=== PATIENT | male | born 1955 | race African-American/Black ===

== ENCOUNTER 2016-12-25 01:08 | Inpatient (IN) | payer MEDICARE, OTHER ==
[~2016-12-25] VITALS: Ht 167.6 cm; Wt 123.0 kg
[2016-12-25] VITALS (21 sets, daily range): BP systolic 107–195; BP diastolic 57–99; PULSE 64–124; RESP 14–18; TEMP 97.1–98.8; O2SAT 95–100
[2016-12-25 01:58] LABS: AUTOMATED NEUTROPHIL # 4.1 TH/MM3 (1.8-7.7); BASOPHIL % 0.4 % (0.0-2.0); EOSINOPHIL # 0.3 TH/MM3 (0-0.4); EOSINOPHIL % 2.8 % (0.0-4.0); HEMATOCRIT 26.7 % (39.0-51.0); HEMO FLAGS DIFF FINAL; LYMPHOCYTE # 4.4 TH/MM3 (1.0-4.8); MEAN CELL VOLUME 93.8 FL (80.0-100.0); MEAN CORPUSCULAR HEMOGLOBIN 29.6 PG (27.0-34.0); MEAN CORPUSCULAR HGB CONC 31.6 % (32.0-36.0); MONO % 12.1 % (0.0-8.0); NEUT % 40.7 % (16.0-70.0); PLATELET COUNT 259 TH/MM3 (150-450); RED BLOOD COUNT 2.84 MIL/MM3 (4.50-5.90); RED CELL DISTRIBUTION WIDTH 16.5 % (11.6-17.2); WHITE BLOOD COUNT 10.1 TH/MM3 (4.0-11.0)
[2016-12-25 02:01] LABS: ANION GAP 17 MEQ/L (5-15); AST (GOT) 13 U/L (15-37); BICARBONATE 17.8 MEQ/L (21.0-32.0); BLOOD UREA NITROGEN 60 MG/DL (7-18); CHLORIDE 101 MEQ/L (98-107); GLOMERULAR FILTRATION RATE 3 ML/MIN (>89); POTASSIUM 3.9 MEQ/L (3.5-5.1); SODIUM (NA) 136 MEQ/L (136-145)
[2016-12-25 02:04] LABS: ALKALINE PHOSPHATASE 65 U/L (45-117); ALT (GPT) 19 U/L (12-78); TOTAL BILIRUBIN ADULT 0.3 MG/DL (0.2-1.0)
--- NOTE | 2016-12-25 02:04 | RADRPT ---
EXAM DATE/TIME: 12/25/2016 01:33 [facility] COMPARISON: No previous studies available for comparison. INDICATIONS : Shortness of breath, rupture of left upper extremity A-V fistula. MEDICAL HISTORY : Unknown SURGICAL HISTORY : Unknown ENCOUNTER: Initial ACUITY: 1 day PAIN SCORE: 3/10 LOCATION: Bilateral chest FINDINGS: A single view of the chest demonstrates diminished lung volumes without evidence of mass, infiltrate or effusion. Mild cardiomegaly. The cardiomediastinal contours are unremarkable. Osseous structures are intact. CONCLUSION: Mild cardiomegaly. Julito Beaulieu MD on December 25, 2016 at 2:03 Board Certified Radiologist. This report was verified electronically.
[2016-12-25 02:08] LABS: APTT (PATIENT) 24.9 SEC (24.3-30.1); PROTHROMBIN TIME - PATIENT 11.2 SEC (9.8-11.6)
--- NOTE | 2016-12-25 02:40 | PD ---
HPI Chief Complaint: Scourer Problem Time Seen by Provider: 01:13 Travel History International Travel<30 days: No Contact w/Intl Traveler<30days: No Traveled to known affect area: No History of Present Illness HPI This is a 61-year-old male with a history of renal failure, dialysis dependent, who presents here with complaints of weakness and bleeding from his AV fistula site. When patient arrived, he was lethargic and weak. He was pale, diaphoretic with heart rate in the 130s. The patient had blood soaked clothes. A pressure dressing with Arsen bandage was immediately placed to his left AV fistula site. Patient states he woke up in his sleep and a puddle of blood in his bed. The patient denies any chest pain, chest pressure. He reports weakness. He reports dizziness and shortness of breath. PFSH Past Medical History Genitourinary: Yes (CKD) Hypertension: Yes Tetanus Vaccination: < 5 Years Influenza Vaccination: No Past Surgical History Surgical History: No Previous Surgery Social History Alcohol Use: Yes (OCC) Tobacco Use: No Substance Use: No Allergies-Medications (Allergen,Severity, Reaction): Coded Allergies: Penicillin (Verified Allergy, Mild, 12/25/16) Review of Systems Except as stated in HPI: all other systems reviewed are Neg General / Constitutional: No: Fever, Chills HENT: No: Headaches, Lightheadedness, Neck Pain Cardiovascular: Positive: Palpitations, No: Chest Pain or Discomfort, Irregular Rhythm Respiratory: No: Cough, Wheezing Gastrointestinal: No: Nausea, Vomiting, Abdominal Pain Musculoskeletal: Positive: Weakness, No: Myalgias (generalized), Pain Neurologic: Positive: Weakness, Dizziness, No: Headache, Change in Mentation Hematologic/Lymphatic: Positive: Other (bleeding from his left AV fistula.) Physical Exam Narrative GENERAL: Well-developed well-nourished gentleman who was brought in lethargic with a large amount of blood to his close. The patient had arterial bleeding from his left antecubital fossa at his shot. SKIN: Pale cool and diaphoretic. HEAD: Atraumatic. Normocephalic. EYES:No scleral icterus. No injection or drainage. ENT: No nasal bleeding or discharge. Mucous membranes pink and moist. NECK: Trachea midline. No JVD. Supple. Sinus tachycardia with a rate of 120 to 1:30. No murmur appreciated. RESPIRATORY: No accessory muscle use. Clear to auscultation. Breath sounds equal bilaterally. GASTROINTESTINAL: Abdomen soft, obese, non-tender, nondistended. MUSCULOSKELETAL: No obvious deformities. No clubbing. No cyanosis. No edema. Patient had arterial bleeding from his AV fistula site. A pressure dressing was placed with an Arsen bandage to stop the bleeding. NEUROLOGICAL: Awake and weak. No obvious cranial nerve deficits. Motor grossly within normal limits. Normal speech. Data Data Last Documented VS Vital Signs Date Time Temp Pulse Resp B/P Pulse Ox O2 Delivery O2 Flow Rate FiO2 12/25/16 01:24 100 Room Air 12/25/16 01:24 121 18 12/25/16:17 98.5 125/95 Orders Electrocardiogram (12/25/16:13) Complete Blood Count With Diff (12/25/16 01:13) Comprehensive Metabolic Panel (12/25/16:13) Prothrombin Time / Inr (Pt) (12/25/16:13) Act Partial Throm Time (Ptt) (12/25/16:13) Chest, Single Ap (12/25/16:13) Iv Access Insert/Monitor (12/25/16:13) Ecg Monitoring (12/25/16:13) Oximetry (12/25/16:13) Type And Screen (12/25/16:13) Red Blood Cells (Rbc) (12/25/16:13) Blood Product Administration .UPON TRANSFUSION (12/25/16 01:13) Labs Laboratory Tests Test 12/25/16 12/25/16 12/25/16 01:27 01:47 02:00 Sodium Level 136 MEQ/L Potassium Level 3.9 MEQ/L Chloride Level 101 MEQ/L Carbon Dioxide Level 17.8 MEQ/L Anion Gap 17 MEQ/L Blood Urea Nitrogen 60 MG/DL Creatinine 14.40 MG/DL Estimat Glomerular Filtration 3 ML/MIN Rate Random Glucose 146 MG/DL Calcium Level 8.6 MG/DL Total Bilirubin 0.3 MG/DL Aspartate Amino Transf 13 U/L (AST/SGOT) Alanine Aminotransferase 19 U/L (ALT/SGPT) Alkaline Phosphatase 65 U/L Total Protein 7.5 GM/DL Albumin 3.2 GM/DL White Blood Count 10.1 TH/MM3 Red Blood Count 2.84 MIL/MM3 Hemoglobin 8.4 GM/DL Hematocrit 26.7 % Mean Corpuscular Volume 93.8 FL Mean Corpuscular Hemoglobin 29.6 PG Mean Corpuscular Hemoglobin 31.6 % Concent Red Cell Distribution Width 16.5 % Platelet Count 259 TH/MM3 Mean Platelet Volume 7.6 FL Neutrophils (%) (Auto) 40.7 % Lymphocytes (%) (Auto) 44.0 % Monocytes (%) (Auto) 12.1 % Eosinophils (%) (Auto) 2.8 % Basophils (%) (Auto) 0.4 % Neutrophils # (Auto) 4.1 TH/MM3 Lymphocytes # (Auto) 4.4 TH/MM3 Monocytes # (Auto) 1.2 TH/MM3 Eosinophils # (Auto) 0.3 TH/MM3 Basophils # (Auto) 0.0 TH/MM3 CBC Comment DIFF FINAL Differential Comment Prothrombin Time 11.2 SEC Prothromb Time International 1.0 RATIO Ratio Activated Partial 24.9 SEC Thromboplast Time Blood Type A POSITIVE Antibody Screen NEGATIVE Crossmatch Leukocyte-Reduced Red Blood Cells Blood Bank Comment MDM Medical Decision Making Medical Screen Exam Complete: Yes Emergency Medical Condition: Yes Differential Diagnosis Bleeding dyscrasia versus over heparinization versus arterial bleeding from AV fistula. Narrative Course This is a 61-year-old male with history of renal failure, dialysis dependent, who presents here with profuse bleeding from his AV fistula site. We were able to gain control however the patient was extremely tachycardic. and patient reported a large amount of blood on the patient's bed. The patient had blood soaked close. Initial hemoglobin was 8.5 before fluid resuscitation. He' s been typed and crossed for 2 units of blood. He'll be transfused 2 units of blood. I spoke with Dr. Leny Conner, on-call night club manager, who will admit the patient to the intensive care unit. There was a call out to Dr. Cholo Acosta, on-call vascular surgeon who will see the patient in consultation. Bleeding is under control. He'll be continued to be resuscitated. Critical Care Narrative Aggregate critical care time was 45 minutes. Time to perform other separately billable procedures was not included in the critical care time. My time did not include minutes spent treating any other patients simultaneously or on activities that did not directly contribute to the patient's treatment. The services I provided to this patient were to treat and/or prevent clinically significant deterioration that could result in: I provided critical care services requiring my management, as noted below: Chart data review, documentation time, medication orders and management, vital sign assessments/reviewing monitor data, ordering and reviewing lab tests, ordering and interpreting/reviewing x-rays and diagnostic studies, care of the patient and discussion of the patient with the admitting physicians. Diagnosis Primary Impression: severe bleeding from AV fistula site. Additional Impressions: Symptomatic anemia persistent tachycardia Kota Serrano MD Dec 25, 2016 02:40
--- NOTE | 2016-12-25 03:25 | HHI.HP ---
[facility] Service Critical Care Medicine Primary Care Physician Dayron Shetty, DO Admission Diagnosis servere av fistula hemmorhage, symptomatic anemia, perstistant tachy Diagnosis: Travel History International Travel<30 Days: No Contact w/Intl Traveler <30 Da: No Traveled to Known Affected Are: No History of Present Illness Patient came in as Abran Acosta middle 164. His name is Abran Huitron 61-year-old male with past medical history of hypertension and end-stage renal disease on hemodialysis since 2007. (Sunday/Sunday/Sunday schedule under the direction of Dr. Kota Ibarra). Tonight he was sleeping and woke up in a puddle of blood. He had active arterial bleeding from his left AV fistula. He was tachycardic in the 140s and presyncopal. There was large volume blood loss in the ED. Dr. Serrano applied a pressure dressing in the ED and was able to achieve satisfactory hemostasis. Vascular surgery has been consulted and Dr. Ko will see him later this morning. Hemoglobin is 8.4. Two units of packed red cells have been ordered and he is currently receiving the first unit. Heart rate is down to 99-101 and BP is 117/60. He states his baseline BP is 120s. L AV brachiocephalic fistula was placed by Dr. Slade 10/02. Dr. Serrano states there is an eschar over fistula that was partially unroofed. Patient states eschar has been present for several months and that he has not sought medical attention for it. Denies prior issues with bleeding, drainage, fever. He denies chest pain or shortness of breath. Review of Systems Constitutional: COMPLAINS OF: Dizziness Past Family Social History Allergies: Coded Allergies: Penicillin (Verified Allergy, Mild, 12/25/16) Past Medical History Hypertension ESRD on HD since 2007 Past Surgical History Peritoneal dialysis catheter 11/07/07 (Dr. Slade) Left brachiocephalic AV fistula 06/12/08 (Dr. Slade) Family History Father had cancer, unclear type Social History He is a nonsmoker. Drinks alcohol only on special occasions. denies use of illicit drugs. Is a Physical Exam Vital Signs Vital Signs Date Time Temp Pulse Resp B/P Pulse Ox O2 Delivery O2 Flow Rate FiO2 12/25/16 03:18 98.7 102 18 107/58 100 Room Air 12/25/16 01:24 100 Room Air 12/25/16 01:24 121 18 100 Room Air 12/25/16 01:17 98.5 124 18 125/95 100 Physical Exam GENERAL: Well-nourished, well-developed obese very pleasant male who is laying in ED stretcher SKIN: Warm and dry, well perfused. HEAD: Atraumatic. Normocephalic. EYES: Pupils equal and round, 3 mm reactive. . ENT: No nasal bleeding or discharge. Mucous membranes pink and moist. NECK: Trachea midline. No JVD. CARDIOVASCULAR: Regular rate and rhythm. No murmurs rubs or gallops. RESPIRATORY: No accessory muscle use. Clear to auscultation. Breath sounds equal bilaterally. on 2 L NC. GASTROINTESTINAL: Abdomen soft, non-tender, nondistended. MUSCULOSKELETAL: Extremities without clubbing, cyanosis, or edema. Dressing in place over left upper extremity without evidence of active bleeding. Thrill LUE is palpable through the bandage. Radial pulse is palpable. NEUROLOGICAL: Awake and alert. . Motor grossly within normal limits. Normal speech, oriented. Laboratory Laboratory Tests Test 12/25/16 12/25/16 12/25/16 01:27 01:47 02:00 Sodium Level 136 Potassium Level 3.9 Chloride Level 101 Carbon Dioxide Level 17.8 Anion Gap 17 Blood Urea Nitrogen 60 Creatinine 14.40 Estimat Glomerular Filtration 3 Rate Random Glucose 146 Calcium Level 8.6 Total Bilirubin 0.3 Aspartate Amino Transf 13 (AST/SGOT) Alanine Aminotransferase 19 (ALT/SGPT) Alkaline Phosphatase 65 Total Protein 7.5 Albumin 3.2 White Blood Count 10.1 Red Blood Count 2.84 Hemoglobin 8.4 Hematocrit 26.7 Mean Corpuscular Volume 93.8 Mean Corpuscular Hemoglobin 29.6 Mean Corpuscular Hemoglobin 31.6 Concent Red Cell Distribution Width 16.5 Platelet Count 259 Mean Platelet Volume 7.6 Neutrophils (%) (Auto) 40.7 Lymphocytes (%) (Auto) 44.0 Monocytes (%) (Auto) 12.1 Eosinophils (%) (Auto) 2.8 Basophils (%) (Auto) 0.4 Neutrophils # (Auto) 4.1 Lymphocytes # (Auto) 4.4 Monocytes # (Auto) 1.2 Eosinophils # (Auto) 0.3 Basophils # (Auto) 0.0 CBC Comment DIFF FINAL Differential Comment Prothrombin Time 11.2 Prothromb Time International 1.0 Ratio Activated Partial 24.9 Thromboplast Time Blood Type A POSITIVE Antibody Screen NEGATIVE Crossmatch Leukocyte-Reduced Red Blood Cells Blood Bank Comment Result Diagram: 12/25/16 0147 12/25/16 0127 Assessment and Plan Assessment and Plan NEURO: Lortab if needed for pain RESP: Nasal cannula wean as tolerated CV: History of hypertension Hold losartan and hydralazine home meds for now. GI: Nothing by mouth until evaluated by vascular surgery FEN/RENAL: ESRD Consult nephrology for HD. Will need vascath for access . Dr. Kota Ibarra is his manager qa. ID: Monitor for signs and symptoms of infection HEME: Acute blood loss anemia Transfuse 2 units PRBC. Repeat Hgb post transfusion VASC: Bleeding from left AV fistula Pressure dressing has been applied by Dr. Serrano. Dr. Richardson with vascular surgery to see. ENDO: Mild stress hyperglycemia. Monitor and initiate low-dose sliding scale if indicated PROPH: SCDs for DVT prophylaxis. Hold on pharmacologic DVT prophylaxis currently due to life threatening hemorrhage. Protonix 40 mg IV daily for stress ulcer prophylaxis. ACCESS: Peripheral IV providing adequate access at this time. Left upper extremity AV fistula 06/21 Patient updated at bedside. Discussed with Dr. Serrano. Level 2 H and Leny Garnica MD Dec 25, 2016 03:25
[2016-12-25] MEDS ORDERED: HYDR-3801 PO (04:11)
[2016-12-25] MEDS ORDERED: SLEEP (04:11)
[2016-12-25] MEDS ORDERED: LOSA25TA PO (04:11)
[2016-12-25] MEDS ORDERED: SODIUM CHLORIDE 0.9% FLUSH 10 ML FLUSH IV FLUSH PRN ×2 (04:15→18:30)
[2016-12-25] MEDS ORDERED: RESP: ALBUTEROL 2.5 MG/3 ML NEB (PRN) INH (04:15)
[2016-12-25] MEDS ORDERED: ACETAMINOPHEN/HYDROcodone 325 MG/5 MG TAB PO PRN (04:15)
[2016-12-25] MEDS ORDERED: BISACODYL 10 MG SUPP RECTAL PRN (04:15)
[2016-12-25] MEDS ORDERED: MISCELLANEOUS NURSING INFORMATION XX SCH (04:15)
[2016-12-25] MEDS ORDERED: MORPHINE SULFATE 4 MG/ML INJ IV PUSH PRN ×2 (04:15→11:15)
[2016-12-25] MEDS ORDERED: CHLORHEXIDINE GLUCONATE 2 % 1 PACK (2 CLOTHS) TOP PRN (04:15)
[2016-12-25] MEDS ORDERED: ONDANSETRON HCL 4 MG/2 ML VIAL IV PRN ×2 (04:15→18:30)
[2016-12-25] MEDS ORDERED: SENNOSIDES 8.6 MG TAB PO PRN (04:15)
[2016-12-25] MEDS ORDERED: MAGNESIUM HYDROXIDE SUSP 30 ML CUP PO PRN ×2 (04:15→11:15)
[2016-12-25] MEDS ORDERED: LACTULOSE SYRUP 20 GM/30 ML CUP PO PRN (04:15)
[2016-12-25] MEDS ORDERED: VANCOMYCIN HCL 1000 MG VIAL ONE (08:05)
[2016-12-25] MEDS ORDERED: HEPARIN SODIUM - IV 10,000 UNITS/10 ML VIAL ONE (08:05)
[2016-12-25] MEDS ORDERED: HEPARIN SODIUM - SQ 10,000 UNITS/ML VIAL ONE (08:05)
[2016-12-25] MEDS ORDERED: PROTAMINE SULFATE 50 MG/5 ML VIAL ONE (08:05)
[2016-12-25] MEDS ORDERED: THROMBIN (TOPICAL) 20,000 UNIT SPRAY KIT ONE (08:06)
[2016-12-25] MEDS ORDERED: BUPIVACAINE/EPINEPHRINE 0.5% 50 ML VIAL ONE (08:06)
[2016-12-25] MEDS ORDERED: BUPIVACAINE HCL PF 0.5% 30 ML VIAL ONE (08:06)
--- NOTE | 2016-12-25 08:38 | PD.VS.CON ---
History of Present Illness Chief Complaint: Left arm bleeding from previously created AVF. Consult Requested by: Dr. Serrano History of Present Illness Patient with hx of left upper extremity AVF [place] [address] Slade. Ulceration for a few months per the patient of the left upper extremity AVF Past/Family/Social History Past Medical History Allergies: Coded Allergies: Penicillin (Verified Allergy, Mild, 12/25/16) Past Medical History Hypertension ESRD on HD since 2007 Past Surgical History Peritoneal dialysis catheter 11/07/07 (Dr. Slade) Left brachiocephalic AV fistula 06/12/08 (Dr. Slade) Family History Father had cancer, unclear type Social History He is a nonsmoker. Drinks alcohol only on special occasions. denies use of illicit drugs. Is a Home Medications Reported Medications [sleep] No Conflict Check 12/25/16 Hydralazine 100 Mg [id number] Mg PO BID Ref 0 Take with meals 12/25/16 Losartan 25 Mg Tab12.5 Mg PO DAILY #15 TAB Ref 0 12/25/16 Coded Allergies: Penicillin (Verified Allergy, Mild, 12/25/16) Physical Exam Vitals/I&O Date Time Temp Pulse Resp B/P Pulse Ox O2 Delivery O2 Flow Rate FiO2 12/25/16 06:26 98.0 64 16 130/75 97 12/25/16 06:18 98.2 83 18 122/67 100 Room Air 12/25/16 05:59 87 18 119/65 100 Room Air 12/25/16 05:46 98.1 84 18 148/57 100 Nasal Cannula 2 12/25/16 05:29 98.8 85 18 120/59 100 Room Air 12/25/16 03:50 69 18 131/86 100 Room Air 12/25/16 03:28 100 18 117/60 100 Room Air 12/25/16 03:18 98.7 102 18 107/58 100 Room Air 12/25/16 01:24 100 Room Air 12/25/16 01:24 121 18 100 Room Air 12/25/16 01:17 98.5 124 18 125/95 100 12/25/16 12/25/16 12/25/16 07:00 15:00 23:00 Intake Total 250 ml Balance 250 ml Neuro: CN 2-12 intact Neck: supple Heart: regular Lungs: CTA B Abdomen: soft, protuberant. Vascular: left arm with dressing in place. left radial pulse palpable. Laboratory Tests Test 12/25/16 12/25/16 12/25/16 01:27 01:47 02:00 Sodium Level 136 Potassium Level 3.9 Chloride Level 101 Carbon Dioxide Level 17.8 Anion Gap 17 Blood Urea Nitrogen 60 Creatinine 14.40 Estimat Glomerular Filtration 3 Rate Random Glucose 146 Calcium Level 8.6 Total Bilirubin 0.3 Aspartate Amino Transf 13 (AST/SGOT) Alanine Aminotransferase 19 (ALT/SGPT) Alkaline Phosphatase 65 Total Protein 7.5 Albumin 3.2 White Blood Count 10.1 Red Blood Count 2.84 Hemoglobin 8.4 Hematocrit 26.7 Mean Corpuscular Volume 93.8 Mean Corpuscular Hemoglobin 29.6 Mean Corpuscular Hemoglobin 31.6 Concent Red Cell Distribution Width 16.5 Platelet Count 259 Mean Platelet Volume 7.6 Neutrophils (%) (Auto) 40.7 Lymphocytes (%) (Auto) 44.0 Monocytes (%) (Auto) 12.1 Eosinophils (%) (Auto) 2.8 Basophils (%) (Auto) 0.4 Neutrophils # (Auto) 4.1 Lymphocytes # (Auto) 4.4 Monocytes # (Auto) 1.2 Eosinophils # (Auto) 0.3 Basophils # (Auto) 0.0 CBC Comment DIFF FINAL Differential Comment Prothrombin Time 11.2 Prothromb Time International 1.0 Ratio Activated Partial 24.9 Thromboplast Time Blood Type A POSITIVE Antibody Screen NEGATIVE Crossmatch Leukocyte-Reduced Red Blood Cells Blood Bank Comment Last 48 hours Impressions Chest X-Ray 12/25/16 0113 Signed Impressions: Service Date/Time: Sunday, December 25, 2016 01:33 - CONCLUSION: Mild cardiomegaly. Julito Beaulieu MD Assessment and Plan Assessment: (1) Symptomatic anemia Status: Acute Plan 61 year old male with hx of left upper extremity access with bleeding. Patient being resuscitated. (two units of PRBCs). Plan for operative repair of left upper extremity fistula. Reached out to Dr. Slade and spoke with Dr. Ibarra. Will need [facility] in the interim for HD. Cholo Ko DO, Cholo Webb DO Dec 25, 2016 08:37
[2016-12-25] MEDS: SODIUM CHLORIDE 0.9% FLUSH 10 ML FLUSH IV FLUSH SCH ×2 (09:00→21:42)
[2016-12-25] MEDS ORDERED: PANTOPRAZOLE SODIUM 40 MG VIAL IV SCH (09:00)
[2016-12-25] MEDS: DOCUSATE SODIUM 50 MG/SENNA 8.6 MG TAB PO SCH ×2 (09:00→21:43)
--- NOTE | 2016-12-25 11:12 | HHI.PR ---
Immediate Post Op Note Procedure Date: Dec 25, 2016 Pre Op Diagnosis: (1) Pseudoaneurysm of AV hemodialysis fistula (2) Symptomatic anemia Post Op Diagnosis: (1) Symptomatic anemia (2) Pseudoaneurysm of AV hemodialysis fistula Surgeon: Cholo Ko Weekend Receptionist(s): Abran Meade Procedure: left upper extremity pseudonaeurysm repair with 5mm bovine carotid arteriograft. Findings: bilobed and ulcerated left upper extremity pseudoaneurysm. Additional Information: NA Complications: None Specimen(s) removed: Left upper extremity pseudoaneurysm. Estimated blood loss: 500cc Anesthesia: General, Local Drains: None Fluids: 750cc crystalloid IVF Tourniquet time (min at mmHg) NA Patient to: PACU Patient Condition: Good Implant/Devices: Other Date/Time of Procedure: Other Cholo oK DO Dec 25, 2016 11:12
[2016-12-25] MEDS ORDERED: ONDANSETRON HCL 4 MG/2 ML VIAL IV PUSH PRN (11:15)
[2016-12-25] MEDS ORDERED: oxyCODONE/ACETAMINOPHEN 10 MG/325 MG TAB PO PRN (11:15)
[2016-12-25] MEDS ORDERED: oxyCODONE/ACETAMINOPHEN 5 MG/325 MG TAB PO PRN (11:15)
[2016-12-25] MEDS ORDERED: GLUCAGON 1 MG/ML VIAL OTHER PRN (11:15)
[2016-12-25] MEDS ORDERED: DEXTROSE 50% IN WATER 50 ML VIAL(D50) IV PUSH PRN (11:15)
[2016-12-25] MEDS ORDERED: Post-op Orders (for Pharmacy) MISC OTHER ONE (11:29)
[2016-12-25] MEDS ORDERED: ONDANSETRON HCL 4 MG/2 ML VIAL IV PUSH ONE (12:00)
[2016-12-25] MEDS: INSULIN NovoLIN REGULAR SUPPLEMENTAL SCALE SQ SCH (12:00)
[2016-12-25] MEDS ORDERED: NEOSTIGMINE 3 MG/3 ML SYR IV ONE (12:00)
[2016-12-25] MEDS ORDERED: PHENYLEPH/NS 1000 MCG/10 ML SYR IV ONE (12:00)
[2016-12-25] MEDS ORDERED: PROPOFOL 200 MG/20 ML AMP IV ONE (12:00)
[2016-12-25] MEDS ORDERED: hydrALAZINE HCL 20 MG/ML VIAL IV PUSH ONE (12:15)
[2016-12-25] MEDS ORDERED: hydrALAZINE HCL 20 MG/ML VIAL IV PUSH PRN (12:15)
[2016-12-25] MEDS ORDERED: LOSA50TA PO (12:55)
[2016-12-25] MEDS ORDERED: ISOS60TA PO (12:56)
[2016-12-25] MEDS ORDERED: ASPI81TA11 PO (12:56)
[2016-12-25] MEDS ORDERED: HYDR-3799 PO (12:58)
[2016-12-25] MEDS ORDERED: SENS60TA PO (12:59)
[2016-12-25] MEDS ORDERED: ATEN50TA PO (12:59)
[2016-12-25] MEDS ORDERED: fentaNYL CITRATE 250 MCG/5 ML AMP ONE (13:49)
[2016-12-25] MEDS ORDERED: MIDAZOLAM HCL 5 MG/5 ML VIAL ONE (13:49)
[2016-12-25] MEDS ORDERED: LIDOCAINE 1%/EPINEPHrine 1:100,000 SOLN 20 ML VIAL ONE (14:13)
--- NOTE | 2016-12-25 14:15 | EKG ---
Date Performed: 12/25/2016 Time Performed: 01:28:09 PTAGE: 89 years EKG: SINUS TACHYCARDIA NONSPECIFIC T-WAVE ABNORMALITY ABNORMAL RHYTHM ECG NO PREVIOUS TRACING DOCTOR: Josh Stevens Interpretating Date/Time 12/25/2016 14:13:31
--- NOTE | 2016-12-25 14:51 | PD.RAD ---
Post Procedure Progress Note Pre Procedure Diagnosis: (1) Pseudoaneurysm of AV hemodialysis fistula Post Procedure Diagnosis: (1) Pseudoaneurysm of AV hemodialysis fistula Procedure Date: Dec 25, 2016 Supervising Radiologist: Pierre Ford Proceduralist/Assist: Owen Andujar RT(R) Anesthesia: Conscious Sedation Plan of Activity Patient to Unit: Nursing Unit Patient Condition: Good Additional Comments: Right IJ is occluded. Placed cath at IJ origin. See PACS Report for procedural detail/treatment Pierre Ford MD Dec 25, 2016 14:51
[2016-12-25] MEDS ORDERED: HEPARIN SODIUM - IV 2,000 UNITS/2 ML VIAL IV FLUSH PRN (15:00)
[2016-12-25] MEDS ORDERED: SODIUM CHLORIDE 0.9% FLUSH 10 ML FLUSH IVF PRN (15:00)
--- NOTE | 2016-12-25 15:58 | RADRPT ---
EXAM DATE/TIME: 12/25/2016 14:13 [facility] COMPARISON: No previous studies available for comparison. INDICATIONS : Patient presents with end stage renal disease in need of dialysis catheter placement. MEDICAL HISTORY : Hypertension ESRD on HD since 2007 SURGICAL HISTORY : Peritoneal dialysis catheter 11/07/07 (Dr. Slade) Left brachiocephalic AV fistula 06/12/08 (Dr. Slade) ENCOUNTER: Initial ACUITY: 1 day PAIN SCORE: 0/10 LOCATION: N/A FLUORO TIME: 0.6 minutes IMAGE SERIES: 0 SEDATION TIME: 30 minutes ACCESS: Right internal jugular vein SEDATION: 1.) 2 mg midazolam (Versed) IV 2.) 150 mcg fentanyl (Sublimaze) IV Prophylactic antibiotics were administered with appropriate pre-procedure timing. Vancomycin within 2 hours of procedure, Ancef (or alternative) within 1 hour of procedure. DEVICE: 1. 15 Slovenian dual lumen 19 cm Sandoval II Plus catheter PROCEDURE : 1. Ultrasound-guided venipuncture. 2. PermaCath placement. 3. Conscious sedation with continuous EKG and oximetry monitoring. The risks, benefits and alternatives to the procedure were explained and verbal and written consent w as obtained. The site was prepped in sterile fashion. Full sterile technique was used, including ca p, mask, sterile gloves and gown and a large sterile sheet. Hand hygiene and 2% chlorhexidine and/or betadine/alcohol prep was utilized per protocol for cutaneous antisepsis. The skin and subcutaneous tissues were infiltrated with local anesthetic solution.With ultrasound and fluoroscopic guidance a dermatotomy was created over the prescribed vein. A micropuncture set was used to access the targete d vein and serial dilatation was performed to accept the prescribed length catheter. A subcutaneous tunnel was created in a retrograde fashion the catheter was pulled through the tunnel. The catheter was flushed and assembled and locked with heparin. The catheter was sutured in place. Conscious sedation was performed with the prescribed dosages and duration as above in the presence of an independent trained radiology nurse to assist in the monitoring of the patient. EKG and oximetry remained stable throughout the procedure. The patient tolerated the procedure well and there were n o complications. The patient was sent to post anesthesia recovery in stable condition. CONCLUSION: Uncomplicated PermaCath placement as above. Pierre Ford MD on December 25, 2016 at 15:55 Board Certified Radiologist. This report was verified electronically.
--- NOTE | 2016-12-25 16:45 | PD.CONS ---
HPI Service Nephrology Consult Requested By Dr. Conner Reason for Consult ESRD on HD. Known to services Primary Care Physician Dayron Shetty DO History of Present Illness The patient is a 61 yo AA male who is known to our services for ESRD on HD. He was brought in by his significant other early this AM for profuse bleeding from his L AVF. Says he awoke in a pool of blood. Has had ulceration on L AVF that was recently evaluated in outpatient vascular surgery clinic, that apparently broke open. Had uneventful HD as outpatient this past Sunday. Specifics of the outpatient vascular report not available to me at this time. Once in ED, a pressure dressing was applied by ED physician and vascular surgery was consulted for repair. Admitting Hgb was 8.4 and he received 2U PRBCs. Vitals overall stable, except tachycardia with HR in 140s. Review of surgical report showed left upper extremity pseudoaneurysm repair with 5mm bovine carotid arteriograft for bilobed and ulcerated left upper extremity pseudoaneurysm. Now has [facility] PermaCath for HD. Pt evaluated today during HD. Drowsy, but says he is doing OK. Review of Systems ROS Limitations: Clinical Condition Constitutional: COMPLAINS OF: Fatigue Past Family Social History Allergies: Coded Allergies: Penicillin (Verified Allergy, Mild, 12/25/16) Past Medical History ESRD on HD HTN Anemia 2ndary hyperparathyroidism Past Surgical History PD catheter placement with subsequent removal L AVF formation Reported Medications Reported Meds & Active Scripts Active Reported Atenolol 50 Mg Tab 50 Mg PO DAILY Sensipar (Cinacalcet) 60 Mg Tab 60 Mg PO DAILY Hydralazine HCl 25 Mg Tablet 25 Mg PO DAILY Aspirin EC (Aspirin) 81 Mg Tabdr 81 Mg PO DAILY Isosorbide Mononitrate ER (Isosorbide Mononitrate) 60 Mg Tab 60 Mg PO DAILY Losartan (Losartan Potassium) 50 Mg Tab 50 Mg PO DAILY [sleep] Active Ordered Medications Current Medications Medications (Trade) Dose Ordered Sig/Tahir Route Start Time Stop Time Status Last Admin (NS Flush) 2 ml UNSCH PRN IV FLUSH 12/25/16 04:15 (NS Flush) 2 ml BID IV FLUSH 12/25/16 09:00 Miscellaneous Information 1 Q361D XX 12/25/16 04:15 (Chlorhexidine 2% Cloth) 3 pack Taper DAILY@04 TOP 12/26/16 04:00 12/22/17 03:59 (Chlorhexidine 2% Cloth) 3 pack UNSCH PRN TOP 12/25/16 04:15 (Sari-Colace) 1 tab BID PO 12/25/16 09:00 (Milk Of Magnesia Liq) 30 ml Q12H PRN PO 12/25/16 04:15 (Senokot) 17.2 mg Q12H PRN PO 12/25/16 04:15 (Dulcolax Supp) 10 mg DAILY PRN RECTAL 12/25/16 04:15 (Lactulose Liq) 30 ml DAILY PRN PO 12/25/16 04:15 (Zofran Inj) 4 mg Q6H PRN IV PUSH 12/25/16 11:15 (Protonix) 40 mg HS PO 12/25/16 21:00 (Milk Of Magnesia Liq) 30 ml DAILY PRN PO 12/25/16 11:15 (Surfak) 240 mg HS PO 12/25/16 21:00 (Percocet 5-325 Mg) 1 tab Q4H PRN PO 12/25/16 11:15 (Percocet 10-325 Mg) 1 tab Q4H PRN PO 12/25/16 11:15 Morphine Sulfate 4 mg 4 mg Q4H PRN IV PUSH 12/25/16 11:15 (Vancomycin Inj/ NS 250 ml Inj) 250 ml @ 250 mls/hr Q12H IV 12/25/16 21:00 12/26/16 09:59 (NovoLIN R SUPPLEMENTAL SCALE) 1 Q6HR SQ 12/25/16 12:00 (D50w (Vial) Inj) 50 ml UNSCH PRN IV PUSH 12/25/16 11:15 (Glucagon Inj) 1 mg UNSCH PRN OTHER 12/25/16 11:15 (Apresoline Inj) 10 mg Q30M PRN IV PUSH 12/25/16 12:15 (NS Flush) UNSCH PRN IVF 12/25/16 15:00 (Heparin Inj) UNSCH PRN IV FLUSH 12/25/16 15:00 Family History NC Social History . Has significant other Denies tobacco Social EtOH No illicits Physical Exam Vital Signs Vital Signs Date Time Temp Pulse Resp B/P Pulse Ox O2 Delivery O2 Flow Rate FiO2 12/25/16 12:00 97.1 93 16 195/82 97 12/25/16 11:57 95 Nasal Cannula 4.00 12/25/16 11:45 97 Nasal Cannula 6.00 12/25/16 11:30 97.7 108 14 173/99 100 12/25/16 11:30 101 12/25/16 07:00 88 12/25/16 07:00 97.9 88 16 123/69 97 12/25/16 06:26 98.0 64 16 130/75 97 12/25/16 06:18 98.2 83 18 122/67 100 Room Air 12/25/16 05:59 87 18 119/65 100 Room Air 12/25/16 05:46 98.1 84 18 148/57 100 Nasal Cannula 2 12/25/16 05:29 98.8 85 18 120/59 100 Room Air 12/25/16 03:50 69 18 131/86 100 Room Air 12/25/16 03:28 100 18 117/60 100 Room Air 12/25/16 03:18 98.7 102 18 107/58 100 Room Air 12/25/16 01:24 100 Room Air 12/25/16 01:24 121 18 100 Room Air 12/25/16 01:17 98.5 124 18 125/95 100 Physical Exam GENERAL: Drowsy, but arousable. SKIN: Warm and dry. HEAD: Atraumatic. Normocephalic. EYES: Pupils equal and round. No scleral icterus. No injection or drainage. ENT: No nasal bleeding or discharge. Mucous membranes pink and moist. NECK: Trachea midline. No JVD. CARDIOVASCULAR: Slightly tachy. L arm wrapped in JANICE bandage. RIJ PC RESPIRATORY: No accessory muscle use. Clear to auscultation. Breath sounds equal bilaterally. GASTROINTESTINAL: Abdomen soft, non-tender, nondistended. Hepatic and splenic margins not palpable. MUSCULOSKELETAL: Extremities without clubbing, cyanosis, or edema. No obvious deformities. NEUROLOGICAL: Drowsy but alert. Normal speech. PSYCHIATRIC: Appropriate mood and affect; insight and judgment normal. Laboratory Laboratory Tests Test 12/25/16 12/25/16 12/25/16 12/25/16 01:27 01:47 02:00 07:40 Sodium Level 136 Potassium Level 3.9 Chloride Level 101 Carbon Dioxide Level 17.8 Anion Gap 17 Blood Urea Nitrogen 60 Creatinine 14.40 Estimat Glomerular Filtration 3 Rate Random Glucose 146 Calcium Level 8.6 Total Bilirubin 0.3 Aspartate Amino Transf 13 (AST/SGOT) Alanine Aminotransferase 19 (ALT/SGPT) Alkaline Phosphatase 65 Total Protein 7.5 Albumin 3.2 White Blood Count 10.1 Red Blood Count 2.84 Hemoglobin 8.4 Hematocrit 26.7 Mean Corpuscular Volume 93.8 Mean Corpuscular Hemoglobin 29.6 Mean Corpuscular Hemoglobin 31.6 Concent Red Cell Distribution Width 16.5 Platelet Count 259 Mean Platelet Volume 7.6 Neutrophils (%) (Auto) 40.7 Lymphocytes (%) (Auto) 44.0 Monocytes (%) (Auto) 12.1 Eosinophils (%) (Auto) 2.8 Basophils (%) (Auto) 0.4 Neutrophils # (Auto) 4.1 Lymphocytes # (Auto) 4.4 Monocytes # (Auto) 1.2 Eosinophils # (Auto) 0.3 Basophils # (Auto) 0.0 CBC Comment DIFF FINAL Differential Comment Prothrombin Time 11.2 Prothromb Time International 1.0 Ratio Activated Partial 24.9 Thromboplast Time Blood Type A POSITIVE Antibody Screen NEGATIVE Crossmatch Leukocyte-Reduced Red Blood Cells Blood Bank Comment Nasal Screen MRSA (PCR) MRSA NOT DETECTED Test 12/25/16 12/25/16 08:27 10:37 Blood Type A POSITIVE Crossmatch Leukocyte-Reduced Leukocyte-Reduced Red Blood Red Blood Cells Cells Blood Bank Comment Result Diagram: 12/25/16 0147 12/25/167 Imaging Last Impressions Chest X-Ray 12/25/16 0113 Signed Impressions: Service Date/Time: Sunday, December 25, 2016 01:33 - CONCLUSION: Mild cardiomegaly. Julito Beaulieu MD Assessment and Plan Problem List: (1) ESRD on dialysis Plan: Pt seen during HD today. Using RIJ Permcath that appears to be functioning well. Mildly acidotic that will correct with HD. Significant fluid retention. UF of 4L as tolerated. Check iPTH, Vit D, and Phos levels. Medications should be adjusted for the patient's ESRD. Avoid gadolinium. (2) Pseudoaneurysm of AV hemodialysis fistula Plan: Repaired 12/25/[address] Ko. (3) Symptomatic anemia Plan: Check CBC with Fe panel for tomorrow. s/p 2U PRBCs (4) Secondary hyperparathyroidism Plan: Check iPTH & Vit D (5) Hyperphosphatemia Plan: Check Phos level (6) Hypertension Plan: BP a little elevated tonight likely related to significant fluid retention. Will reassess after HD and adjust medications if needed. Nasima Potter Dec 25, 2016 16:45
[2016-12-25] MEDS ORDERED: cloNIDine HCL 0.1 MG TAB PO PRN (18:30)
[2016-12-25] MEDS ORDERED: GELATIN 12 MM/7 MM FOAM TOPICAL PRN (18:30)
[2016-12-25] MEDS ORDERED: HEPARIN SODIUM - IV 10,000 UNITS/10 ML VIAL OTHER PRN (18:30)
[2016-12-25] MEDS ORDERED: NS 250 ML IV PRN (18:30)
[2016-12-25] MEDS ORDERED: diphenhydrAMINE HCL 25 MG CAP PO PRN (18:30)
[2016-12-25] MEDS ORDERED: MANNITOL 12.5 GM/50 ML VIAL IV PRN (18:30)
[2016-12-25] MEDS ORDERED: HEPARIN SODIUM - IV 10,000 UNITS/10 ML VIAL IV FLUSH PRN (18:30)
[2016-12-25] MEDS ORDERED: ALBUMIN HUMAN 25% 25 GM/100 ML BAGP IV PRN (18:30)
[2016-12-25] MEDS ORDERED: ACETAMINOPHEN 325 MG TAB PO PRN (18:30)
[2016-12-25] MEDS ORDERED: GENTAMICIN SULFATE (DIALYSIS USE ONLY) 20 MG/2 ML VIAL OTHER PRN (18:30)
[2016-12-25] MEDS ORDERED: SODIUM CHLOR 0.9% 1000 ML IV PRN ×2 (18:30)
[2016-12-25] MEDS ORDERED: NITROGLYCERIN 0.4 MG SL 25 TABS/BTL SL PRN (18:30)
--- NOTE | 2016-12-25 18:33 | PD.VS.PN ---
Subjective POD #: 0 Procedure(s): Repair of left upper extremity pseudoaneurysm of AVF. Subjective/Hospital Course without complaints. Objective Vitals/I&O left upper arm with thrill and dressing intact. Date Time Temp Pulse Resp B/P Pulse Ox O2 Delivery O2 Flow Rate FiO2 12/25/16 12:00 97.1 93 16 195/82 97 12/25/16 11:57 95 Nasal Cannula 4.00 12/25/16 11:45 97 Nasal Cannula 6.00 12/25/16 11:30 97.7 108 14 173/99 100 12/25/16 11:30 101 12/25/16 07:00 88 12/25/16 07:00 97.9 88 16 123/69 97 12/25/16 06:26 98.0 64 16 130/75 97 12/25/16 06:18 98.2 83 18 122/67 100 Room Air 12/25/16 05:59 87 18 119/65 100 Room Air 12/25/16 05:46 98.1 84 18 148/57 100 Nasal Cannula 2 12/25/16 05:29 98.8 85 18 120/59 100 Room Air 12/25/16 03:50 69 18 131/86 100 Room Air 12/25/16 03:28 100 18 117/60 100 Room Air 12/25/16 03:18 98.7 102 18 107/58 100 Room Air 12/25/16 01:24 100 Room Air 12/25/16 01:24 121 18 100 Room Air 12/25/16 01:17 98.5 124 18 125/95 100 12/25/16 12/25/16 12/25/16 07:00 15:00 23:00 Intake Total 250 ml Balance 250 ml Laboratory Laboratory Tests Test 12/25/16 12/25/16 12/25/16 12/25/16 01:27 01:47 02:00 07:40 Sodium Level 136 Potassium Level 3.9 Chloride Level 101 Carbon Dioxide Level 17.8 Anion Gap 17 Blood Urea Nitrogen 60 Creatinine 14.40 Estimat Glomerular Filtration 3 Rate Random Glucose 146 Calcium Level 8.6 Total Bilirubin 0.3 Aspartate Amino Transf 13 (AST/SGOT) Alanine Aminotransferase 19 (ALT/SGPT) Alkaline Phosphatase 65 Total Protein 7.5 Albumin 3.2 White Blood Count 10.1 Red Blood Count 2.84 Hemoglobin 8.4 Hematocrit 26.7 Mean Corpuscular Volume 93.8 Mean Corpuscular Hemoglobin 29.6 Mean Corpuscular Hemoglobin 31.6 Concent Red Cell Distribution Width 16.5 Platelet Count 259 Mean Platelet Volume 7.6 Neutrophils (%) (Auto) 40.7 Lymphocytes (%) (Auto) 44.0 Monocytes (%) (Auto) 12.1 Eosinophils (%) (Auto) 2.8 Basophils (%) (Auto) 0.4 Neutrophils # (Auto) 4.1 Lymphocytes # (Auto) 4.4 Monocytes # (Auto) 1.2 Eosinophils # (Auto) 0.3 Basophils # (Auto) 0.0 CBC Comment DIFF FINAL Differential Comment Prothrombin Time 11.2 Prothromb Time International 1.0 Ratio Activated Partial 24.9 Thromboplast Time Blood Type A POSITIVE Antibody Screen NEGATIVE Crossmatch Leukocyte-Reduced Red Blood Cells Blood Bank Comment Nasal Screen MRSA (PCR) MRSA NOT DETECTED Test 12/25/16 12/25/16 08:27 10:37 Blood Type A POSITIVE Crossmatch Leukocyte-Reduced Leukocyte-Reduced Red Blood Red Blood Cells Cells Blood Bank Comment Assessment and Plan Assessment: (1) Symptomatic anemia Status: Acute Plan 61 year old male with hx of left upper extremity access with bleeding. Pseudoaneurysm excised and bypass with bovine carotid artery performed. Downgrade to CIC since hemodynamically stable. Possible DC home with follow up in 1-2 weeks if stable in a.m. Cholo Ko DO, Cholo Webb DO Dec 25, 2016 18:33
[2016-12-25] MEDS ORDERED: DOCUSATE CALCIUM 240 MG CAP PO SCH (21:00)
[2016-12-25] MEDS ORDERED: PANTOPRAZOLE SOD 40 MG DELAYED RELEASE TAB PO SCH (21:00)
[2016-12-25 21:13] LABS: TRANSFERRIN IRON PROFILE 151 MG/DL (200-360)
[2016-12-25 21:15] LABS: FERRITIN 1103 NG/ML (26-388)
[2016-12-25] MEDS: VANCOMYCIN INJ 1,000 MG in SODIUM CHLOR 0.9% 250 ML INJ 250 ML IV SCH (21:44)
[2016-12-26] VITALS (14 sets, daily range): BP systolic 107–155; BP diastolic 54–97; PULSE 96–118; RESP 16–18; TEMP 98.7–98.9; O2SAT 96–97
[2016-12-26] MEDS ORDERED: CHLORHEXIDINE GLUCONATE 2 % 1 PACK (2 CLOTHS) TOP SCH (04:00)
[2016-12-26 05:03] LABS: ALT (GPT) 14 U/L (12-78); ANION GAP 11 MEQ/L (5-15); AST (GOT) 10 U/L (15-37); BICARBONATE 25.5 MEQ/L (21.0-32.0); BLOOD UREA NITROGEN 50 MG/DL (7-18); CHLORIDE 100 MEQ/L (98-107); GLOMERULAR FILTRATION RATE 5 ML/MIN (>89); POTASSIUM 4.6 MEQ/L (3.5-5.1); SODIUM (NA) 136 MEQ/L (136-145)
[2016-12-26 05:05] LABS: ALKALINE PHOSPHATASE 49 U/L (45-117); TOTAL BILIRUBIN ADULT 0.4 MG/DL (0.2-1.0)
[2016-12-26 05:11] LABS: AUTOMATED NEUTROPHIL # 14.5 TH/MM3 (1.8-7.7); BASOPHIL % 0.2 % (0.0-2.0); EOSINOPHIL # 0.1 TH/MM3 (0-0.4); EOSINOPHIL % 0.4 % (0.0-4.0); HEMATOCRIT 26.8 % (39.0-51.0); HEMO FLAGS DIFF FINAL; LYMPH % 11.5 % (9.0-44.0); LYMPHOCYTE # 2.1 TH/MM3 (1.0-4.8); MEAN CORPUSCULAR HEMOGLOBIN 29.8 PG (27.0-34.0); MEAN CORPUSCULAR HGB CONC 33.4 % (32.0-36.0); MONO % 9.2 % (0.0-8.0); NEUT % 78.7 % (16.0-70.0); PLATELET COUNT 172 TH/MM3 (150-450); RED BLOOD COUNT 3.01 MIL/MM3 (4.50-5.90); WHITE BLOOD COUNT 18.4 TH/MM3 (4.0-11.0)
[2016-12-26] MEDS: INSULIN NovoLIN REGULAR SUPPLEMENTAL SCALE SQ SCH ×2 (05:55)
--- NOTE | 2016-12-26 08:17 | HHI.DS ---
Discharge Summary Admission Date Dec 25, 2016 at 03:13 Admitting Diagnosis servere av fistula hemmorhage, symptomatic anemia, perstistant tachy Brief History Patient came in as Abran Acosta middle 164. His name is Abran Huitron 61-year-old male with past medical history of hypertension and end-stage renal disease on hemodialysis since 2007. (Sunday/Sunday/Sunday schedule under the direction of Dr. Kota Ibarra). Tonight he was sleeping and woke up in a puddle of blood. He had active arterial bleeding from his left AV fistula. He was tachycardic in the 140s and presyncopal. There was large volume blood loss in the ED. Dr. Serrano applied a pressure dressing in the ED and was able to achieve satisfactory hemostasis. Vascular surgery has been consulted and Dr. Ko will see him later this morning. Hemoglobin is 8.4. Two units of packed red cells have been ordered and he is currently receiving the first unit. Heart rate is down to 99-101 and BP is 117/60. He states his baseline BP is 120s. L AV brachiocephalic fistula was placed by Dr. Slade 10/02. Dr. Serrano states there is an eschar over fistula that was partially unroofed. Patient states eschar has been present for several months and that he has not sought medical attention for it. Denies prior issues with bleeding, drainage, fever. He denies chest pain or shortness of breath. CBC/BMP: 12/26/16 0339 12/26/16 0339 Significant Findings Laboratory Tests Test 12/25/16 12/25/16 12/26/16 01:27 01:47 03:39 Carbon Dioxide Level 17.8 MEQ/L (21.0-32.0) Anion Gap 17 MEQ/L (5-15) Blood Urea Nitrogen 60 MG/DL (7-18) 50 MG/DL (7-18) Creatinine 14.40 MG/DL 12.34 MG/DL (0.60-1.30) (0.60-1.30) Estimat Glomerular Filtration 3 ML/MIN (>89) 5 ML/MIN (>89) Rate Random Glucose 146 MG/DL (74-106) Total Iron Binding Capacity 211 MCG/DL (250-450) Ferritin 1103 NG/ML (26-388) Aspartate Amino Transf 13 U/L (15-37) 10 U/L (15-37) (AST/SGOT) Albumin 3.2 GM/DL 2.7 GM/DL (3.4-5.0) (3.4-5.0) 25-Hydroxy Vitamin D Total 22.2 ng/ML (30-100) Red Blood Count 2.84 MIL/MM3 3.01 MIL/MM3 (4.50-5.90) (4.50-5.90) Hemoglobin 8.4 GM/DL 9.0 GM/DL (13.0-17.0) (13.0-17.0) Hematocrit 26.7 % 26.8 % (39.0-51.0) (39.0-51.0) Mean Corpuscular Hemoglobin 31.6 % Concent (32.0-36.0) Monocytes (%) (Auto) 12.1 % 9.2 % (0.0-8.0) (0.0-8.0) Monocytes # (Auto) 1.2 TH/MM3 1.7 TH/MM3 (0-0.9) (0-0.9) White Blood Count 18.4 TH/MM3 (4.0-11.0) Neutrophils (%) (Auto) 78.7 % (16.0-70.0) Neutrophils # (Auto) 14.5 TH/MM3 (1.8-7.7) Calcium Level 8.0 MG/DL (8.5-10.1) Parathyroid Hormone (Intact) 899.4 PG/ML (12.4-76.8) PE at Discharge gen: male sitting in bed, no acute distress heent: ncat. mmm. chest: unlabored. on room air cv: normal rate, regular rhythm abd: soft, nontender, nondistended. extr: left upper extremity wrapped in clean lencho bandage. neuro: GCS 15, RASS 0. no focal deficits. Hospital Course Patient was taken to the operating room by Dr. Ko for left AVF pseudoaneurysm repair. He tolerated the procedure well. He was recovered in the CVICU. Interventional radiology placed tunneled dialysis access for temporary use while the fistula is healing. Patient did well overnight, tolerated a diet. pain control is adequate. patient received inpatient HD POD 0 to keep his MWF schedule intact. He has plans to go to HD with Dr. Ibarra first thing in the morning tomorrow at 05:30 which is his usual scheduled time. He has also agreed to follow up with his PCP. He lives at home with his fiancee who has taken off a few days of work to assist him in recovering. Pt Condition on Discharge: Good Discharge Disposition: Discharge Home Discharge Instructions DIET: Follow Instructions for: As Tolerated, No Restrictions, Renal Failure Diet Speech Therapy-Diet Recommends: Regular Activities you can perform: Regular-No Restrictions Adelso Montemayor MD Dec 26, 2016 08:17
[2016-12-26] MEDS: SODIUM CHLORIDE 0.9% FLUSH 10 ML FLUSH IV FLUSH SCH (08:30)
[2016-12-26] MEDS: VANCOMYCIN INJ 1,000 MG in SODIUM CHLOR 0.9% 250 ML INJ 250 ML IV SCH (08:30)
[2016-12-26] MEDS: DOCUSATE SODIUM 50 MG/SENNA 8.6 MG TAB PO SCH (08:30)
[2016-12-26] MEDS ORDERED: BACT400T PO (09:22)
--- NOTE | 2016-12-26 17:43 | MP ---
cc: KATHYA HAJI DATE OF SURGERY December 25, 2016 PREOPERATIVE DIAGNOSIS Bleeding AV fistula pseudoaneurysm with denuded skin. POSTOPERATIVE DIAGNOSIS Bleeding AV fistula pseudoaneurysm with denuded skin. PROCEDURE 1. Left upper extremity pseudoaneurysm excision. 2. Revision with 5 mm bovine carotid arteriograph. SURGEON Kathya Haji DO [employer] Abran Meade IV FLUIDS 750 ESTIMATED BLOOD LOSS 500 URINE OUTPUT Not calculated. COMPLICATIONS None DISPOSITION ICU PROCEDURE The patient's left upper extremity was prepped and draped in sterile fashion once the patient was asleep. They gave the patient perioperative antibiotics in the way of vancomycin. I made an elliptical incision over bilobed pseudoaneurysm in the left cephalic vein with a scalpel and electrocautery. I dissected the vein out. There were some punctures made while doing this. I got distal and proximal control of the outflow cephalic vein in the proximal area near the anastomosis. I placed vessel loops around these areas. It should be noted that before clamping I did give a total of 4000 units of heparin. Once I removed the aneurysmal segment of cephalic vein, I then performed an anastomosis using a 5-0 and a of the arterial end. I used a 5 mm . It should be noted after I performed my anastomosis, I placed a Wei clamp distally. There was no bleeding on the side branches of the carotid artery. I then tunneled it laterally and performed the distal anastomosis in an essentially end-to-end fashion with another 5-0 and a ____. I used a 6-0 Prolene for a correction stitch at the end of the case and there was a nice thrill distally and within the graft itself. There were also radial artery signals that were triphasic and ulnar artery signals as well. There was a lot of oozing at the base of the wound. I did use FloSeal to help out with hemostasis and applied pressure electrocautery. I used layered suturing with interrupted 2-0 Vicryl and then I used 2-0 nylon sutures to approximate the skin edges in a horizontal mattress form. I then used ej over the skin edges and Dermabond. I did use 4x4s over the area and Kerlix with an Arsen bandage. The patient tolerated the procedure well and was taken to the ICU at the end of the case. DO TY Chaparro /11:24 AM /5:26 PM
== END 2016-12-26 12:03 | disposition home or self-care (01) | DRG 252 ==
LOC: NEPE 01:08 → EDBD 03:13 → NEDA 03:13 → HCVR 06:27 → HCIN 17:22 → HCIS 23:30
PROVIDERS: ADMIT Emergency Medicine; ATTEND Emergency Medicine
PROC: 05WY07Z Revision of Autologous Tissue Substitute in Upper Vein, Open Approach (ICD-10-PCS; 2016-12-25)
PROC: 30253N1 (ICD-10-PCS; 2016-12-25)
PROC: 05CF0ZZ Extirpation of Matter from Left Cephalic Vein, Open Approach (ICD-10-PCS; principal; 2016-12-25 08:37)
DX: T82.838A Hemorrhage due to vascular prosthetic devices, implants and grafts, initial encounter (principal); N18.6 End stage renal disease; E87.2 Acidosis; I12.0 Hypertensive chronic kidney disease with stage 5 chronic kidney disease or end stage renal disease; D62 Acute posthemorrhagic anemia; E83.39 Other disorders of phosphorus metabolism; I72.1 Aneurysm of artery of upper extremity; Y84.1 Kidney dialysis as the cause of abnormal reaction of the patient, or of later complication, without mention of misadventure at the time of the procedure; Z99.2 Dependence on renal dialysis
CPT/HCPCS: 36430; 36558; 71010; 76937; 77001; 80053; 82306; 82728; 82948; 83540; 83550; 83970; 85025; 85610; 85730; 86850; 86900; 86901; 86920; 87641; 90935; 93005; 94150; 96374; 99152; 99153; C1750; C1757; C1769; J0360; J1580; J1644; J2250; J2370; J2405; J2710; J2720; J3010; J3370; J7050; P9016